=== PATIENT | male | born 1970 | race Caucasian/White ===

== ENCOUNTER 2018-04-22 05:39 | Inpatient (IN) ==
[2018-04-22] MEDS ORDERED: Vancomycin Inj 1 GM/200 ML PIGGYBACK IV.SIG ONE (06:42)
[2018-04-22] MEDS ORDERED: Chlorhexidine Gluconate 2% 1 Pack (2 Cloths) TOPICAL SCH (06:45)
[2018-04-22] MEDS ORDERED: Metoprolol Tartrate 25 MG Tablet PO SCH (06:45)
[2018-04-22] MEDS ORDERED: Vancomycin Inj 1 GM/200 ML PIGGYBACK IV.SIG SCH (07:00)
[2018-04-22] MEDS ORDERED: Sodium Chlor 0.9% Inj 500 ML IV.SIG SCH (07:00)
[2018-04-22] MEDS ORDERED: Sodium Chlor 0.9% Inj 40 ML, Bupivacaine Liposo PF 1.3% Inj 20 ML P-ARTICULR SCH ×2 (07:00)
[2018-04-22] MEDS ORDERED: SODIUM CHLOR 0.9% IV.SIG SCH (07:00)
[2018-04-22] MEDS ORDERED: TRANEXAMIC ACID IV.SIG SCH (07:00)
[2018-04-22] MEDS ORDERED: ceFAZolin 2 GM Premix Inj 2 GM/50 ML PIGGYBACK IV.SIG SCH (07:00)
[2018-04-22] MEDS ORDERED: Bupivacaine/Epinephrine Inj 0.25% 50 ML Vial ONE (07:35)
[2018-04-22] MEDS ORDERED: Morphine Inj 4 MG/ML Vial IV.PUSH PRN ×2 (09:38→10:25)
[2018-04-22] MEDS ORDERED: Post-op Orders (for Pharmacy) OTHER STA (09:38)
[2018-04-22] MEDS ORDERED: oxyCODONE/Acetaminophen 10/325 Tablet PO PRN (09:38)
[2018-04-22] MEDS ORDERED: Bisacodyl 10 MG Supp RECTAL PRN (09:38)
--- NOTE | 2018-04-22 10:07 | P.OP ---
- Preoperative Diagnosis (1) Primary osteoarthritis of left hip - Postoperative Diagnosis (1) Primary osteoarthritis of left hip Date of procedure: 04/22/18 Procedure: Left total hip replacement arthroplasty, direct anterior exposure Anesthesia: GETA Surgeon: Tony Villalba MD [employer] Worker: Emily Puga Estimated blood loss (mL): 800 Operation and Findings: EBL: 800 cc INDICATION: This patient presents with significant hip pain related to severe osteoarthritis of the left hip with acetabular dysplasia and lateral subluxation. Despite extensive conservative care this patient continues to be painful and now presents for surgical treatment. NOTE: Emily Puga PA-C was present for the entire surgical procedure as my international first officer. In my medical opinion her skill and care was necessary for the proper management of this patient. COMPONENTS: COMPANY: [employer] CUP: [place], 62, 100 series, gription surface LINER: Altrx 36, neutral STEM: [place]ail size 16, high offset, hydroxyapatite-coated HEAD: 36, +8.5, ceramic, 12/14 taper PROCEDURE: This patient was brought to the operating room and anesthetized in the supine position and positioned on the fracture table with both legs held extended. The left hip and leg was scrubbed with alcohol followed by Hibiclens followed by ChloraPrep and draped sterilely. Antibiotics were given within routine time window and a timeout was done. A 4 inch incision was made starting 2 cm distal and 2 cm lateral to the anterior superior iliac spine. The fascia mannie was opened longitudinally. The interval between the fascia mannie and the rectus was opened down to the capsule of the hip joint. Retractors were positioned allowing good visualization of the capsule. This was opened longitudinally and flaps were created. Stay sutures were utilized. Exposure was excellent. The neck was cut at the proper location using fluoroscopy as a guide. The head was removed. Deep retractors were positioned allowing good visualization of the acetabulum. Acetabulum was deepened down to the floor starting with a proper size reamer and reaming up to 61 mm. A trial was utilized. Fluoroscopy was used to check position and confirmed satisfactory alignment. The rim was reamed with a 62 mm reamer and the final cup was positioned in approximately 20 of anteversion and 40-45 of abduction. Position was satisfactory. A single hole eliminator was positioned followed by the final liner. The lifting hook was utilized. The leg was dropped to the floor, maximally externally rotated and brought across the midline. Retractors were positioned. A box osteotome was utilized followed by progressive broaching to the proper stem size. Trial reduction showed excellent alignment and fit. With 60 of external rotation the leg was dropped to the floor without evidence of anterior subluxation. The wound was irrigated. The final stem was inserted and was found to be very stable. The final reduction using the final head. Stability was as previously noted. Intraoperative x-rays were taken. The wound was irrigated copiously. Hemostasis was controlled. Local anesthesia was utilized. The capsule was repaired with #2 Tycron sutures. The fascia mannie was repaired with running 0 PDS on a loop. Subcutaneous tissue was approximated with 2-0 Vicryl and skin with running intradermal 3-0 Vicryl followed by Steri-Strips. A sterile dressing was applied. The patient was awakened and taken to the recovery room in satisfactory condition. FINDINGS: There was severe osteoarthritis of the left hip with periacetabular osteophytes. The final solution was excellent. There was no complication that was appreciated
--- NOTE | 2018-04-22 10:09 | P.DCO ---
- Physical Therapy Physical Therapy: Gait training Hip: Total hip, Protocol: Left Left Lower Extremity Weight Bearing: Weight bearing as tolerated - Nursing RN: 3 days/week x 2 weeks Dressing changes: Do not change dressing - Certification Need for Home Health services: I have seen patient Neil Steele on 04/22/18. My clinical findings support the need for the requested home health care services because: Need for Home Health Services: Limited ability to care for self, High risk of falls Homebound Certification: I certify that my clinical findings support that this patient is homebound because: Homebound Certification: Post-op weakness, Unsteady gait/balance
[2018-04-22] MEDS ORDERED: fentaNYL Citrate Inj 100 MCG/2 ML Ampul ONE (10:19)
[2018-04-22] MEDS ORDERED: *Ondansetron Inj 4 MG/2 ML Vial PERIprocedural Use ONLY ONE (10:55)
[2018-04-22] MEDS ORDERED: *Promethazine Inj 25 MG/ML Vial PERIprocedural use ONLY ONE (11:03)
--- NOTE | 2018-04-22 11:22 | P.DS ---
Date of admission: 04/22/18 05:39 Primary care physician: Roshni Hutchinson MD Attending physician on discharge: Tony Villalba Anticipated date of discharge: 04/24/18 Brief History from admission: Mr. Steele has had ongoing left hip pain for 5-1/2 years. He pain began to increase middle of 2016. He saw his primary care physician in July where x- rays were taken. He was told he had severe arthritis. He began to decrease his activity substantially and discontinued all sports. He was given diclofenac which provided mild relief for approximately 3 months. Physical therapy was ordered but provided little relief. He was offered an intra- articular injection but declined. Eventually left total hip arthroplasty, anterior approach was recommended and the patient agreed. He now presents for the above. DS: Diagnosis - Discharge Diagnosis (1) Primary osteoarthritis of left hip Status: Acute DS: Medications - Discharge Medications Prescriptions: aspirin 81 mg PO BID #60 tab oxycodone-acetaminophen 1 tab PO Q4H PRN #42 tab PRN Reason: Pain DS: Summary Hospital Course: Surgical treatment was performed on the day of admission without complication. He recovered well in PACU and was transferred to the orthopaedic floor. Pain was controlled with IV and oral medications. He was compliant with physical therapy and all total hip precautions. After 2 days he was discharged home with home health care. He was educated to progressively weightbear on his operative limb, to pursue a high fiber diet for 3-5 days postop and to ice the operative site 2 times daily for 7 days. He was given prescriptions for aspirin and oxycodone at discharge. - Time Spent with Patient Total time spent providing and/or coordinating discharge services: Less than 30 minutes - Quality: VTE Deep Vein Thrombosis/Pulmonary Embolism Present on Admission: No Exam Vital signs: Vital Signs 04/22/18 06:59 04/22/18 10:08 04/22/18 10:15 Temperature 98.1 F 98.5 F Pulse Rate 76 87 87 Respiratory Rate 20 16 14 Blood Pressure 138/81 117/67 121/65 Pulse Oximetry 100 04/22/18 10:30 04/22/18 10:45 04/22/18 11:00 Temperature Pulse Rate 84 86 83 Respiratory Rate 16 16 14 Blood Pressure 114/62 110/59 L 111/58 L Pulse Oximetry 100 97 95 Intake & Output 04/21/18 04/22/18 04/22/18 18:59 06:59 18:59 Intake Total 2160.17 / 2160.17 Output Total 800 / 800 Balance 1360.17 / 1360.17 Weight 101.7 kg Intake: IV 160.17 / 160.17 Cyklokapron Inj 1,017 MG In NS 110.17 / 110.17 Inj 100 ML @ 200 mls/hr IV.SIG ONCE ANNA Rx#:[id number] Ancef 2 GM Premix Inj 2 gm In 50 / 50 50 ml @ 100 mls/hr IV.SIG [employer] ANNA Rx#:[id number] Anesthesia Amount 1999 Output: Estimated Blood Loss 800 / 800 Other: Weight On Admission 101.7 kg Results Procedures completed during hospitalization: left total hip arthroplasty, direct anterior approach Labs on day of discharge: Labs from last 24 hours 04/22/18 04/22/18 04/22/18 08:31 06:38 06:35 Blood Type A Positive Blood Type Confirm A Positive Antibody Screen Negative MTS Gel Crossmatch See Detail See Detail Discharge Plan - Discharge Disposition Patient Disposition: /Home Health Service - Discharge Condition Condition: Good - Discharge Order Discharge Orders: Discharge Order (Routine); Ordered 04/24/18 Ordered By: Emily Puga - Discharge Details Anticipated Discharge Date: 04/24/18 - Physicians Team Primary Care Provider: Roshni Hutchinson Attending Provider: Tony Villalba Other Providers: Manny Harp MD ; [facility] - Rxs /Orders / Referrals /Forms Prescriptions: New aspirin 81 mg Tablet,Chewable 81 mg PO BID Qty: 60 RF: 0 oxycodone-acetaminophen 10-325 mg Tablet 1 tab PO Q4H PRN (Reason: Pain) Qty: 42 RF: 0 Ambulatory Orders / Order Sets / DME: Adjustable Commode 3-in-1 (1 each) (Routine) Location: Determined by Patient Ordered By: Emily Puga Walker With Front Wheels (1 each) (Routine) Location: Determined by Patient Ordered By: Emily Puga Referrals: Roshni Hutchinson MD [Primary Care Provider] - See Instructions - Discharge Instructions Patient Printed Instructions: Oxycodone/Acetaminophen (By mouth), Aspirin (By mouth), How to Use an Incentive Spirometer (DC), Fall Prevention (DC), SONIDO Hose (DC), Total Hip Replacement (DC) Additional Instructions: Full weight bearing; NO dressing changes per Surgeon Follow up appointment is scheduled for 05/06 @ 1:30 pm Mohamud Mcdowell - Post Discharge Care Plan Care Plan Goals: Discharge Care Plan Goals for Total Hip Replacement You had a left anterior hip replacement surgery. This means your natural hip was replaced with an artificial joint (prosthesis). You may be recovering at home or in a rehabilitation facility. Either way, you must take care of your new hip. Here are some goals to help you heal well. Directions to Meet your Goals: 1. Activity & Exercises: * Take pain medicine as directed by your doctor. * Dont drive until your doctor says its OK. And never drive while taking opioid pain medicine. * Wear the support stockings you were given in the hospital as directed by your surgeon. * Dont sit for more than 30 to 45 minutes at one time. * Dont lean forward while sitting. * Dont cross your legs. * Keep your feet flat on the floor. Dont turn your foot or leg inward. This stresses your hip joint. * Use an elevated toilet seat for 6 weeks after surgery. * Nap if you are tired, but dont stay in bed all day. * Sit on a firm cushion when you ride in a car and avoid sitting too low. Try not to bend your hip too much when getting in and out of the car. 2. Prevent Falls/Injury: * Follow your doctors orders regarding how much weight to put on the affected leg. * Dont bend at the hip when you bend over. Don't bend at the waist to put on socks and shoes. And avoid picking up items from the floor. * Use a cane, crutches, a walker, or handrails until your balance, flexibility, and strength improve. And remember to ask for help from others when you need it. * Free up your hands so that you can use them to keep balance. Use a jie pack , apron, or pockets to carry things. * Arrange your household to keep the items you need handy. Keep everything else out of the way. * Remove items that may cause you to fall, such as throw rugs and electrical cords. * Use nonslip bath mats, grab bars, an elevated toilet seat, and a shower chair in your bathroom * Sit on a shower stool or chair when you shower to keep from falling. 3. Precautions: * Prevent infection. Any infection will need to be treated immediately. Call your doctor right away if you think you might have an infection. * Tell your dentist that you have an artificial joint and take antibiotics as prescribed before any dental work. * Tell all your healthcare providers about your artificial joint before any medical procedure. * Maintain a healthy weight. Get help to lose any extra pounds. Added body weight puts stress on the joints. 4. Incision Care: * Prevent infection by washing your hands often. If an infection occurs, it will need to be treated right away. * Call your doctor right away if you think you may have an infection. Symptoms include a fever or an incision that leaks white, green, or yellow fluid. * Don't soak your incision in water until your doctor says its OK. This means no hot tubs, bathtubs, or swimming pools. * Follow your doctor's instructions for changing the dressing. * Dont rub the incision, or apply creams or lotions to it. * If you notice any redness or drainage around the bandage site, contact your surgeon's office immediately. 5. Follow-Up: Do Not miss your follow-up appointment. Keep up with all your appointments and yearly check ups When to call your doctor: Call your doctor right away if you have: Hip pain gets worse Pain or swelling in your calf or leg not related to your incision Tenderness or redness in your calf Fever of 100.4F (38C) or higher, or as directed by your healthcare provider Shaking chills Swelling or redness at the incision site gets worse Fluid draining from the incision Call 911: Call 911 right away if you have: Chest pain Shortness of breath Any pain or tenderness in your calf
--- NOTE | 2018-04-22 11:26 | P.DCO ---
- Physical Therapy Physical Therapy: Gait training, Safety evaluation Hip: Total hip, Protocol: Left, Progress to weight bearing Left Lower Extremity Weight Bearing: Weight bearing as tolerated Additional instructions: PT 4days/wk for 2 weeks. WBAT LeftLE. Anterior VALENTIN precautions. Walker for gait assist - Nursing RN days per week: 3 x week(s): 1 Nursing: Dressing changes Dressing changes: Do not change dressing Additional instructions: Rn 3x/wk for 1 week. Hold dressing changes unless saturated. Vitals assessment. - Certification Need for Home Health services: I have seen patient Neil Steele on 04/22/18. My clinical findings support the need for the requested home health care services because: Need for Home Health Services: Limited mobility due to disease progression, Deconditioned with increased weakness, Limited ability to care for self, High risk of falls Homebound Certification: I certify that my clinical findings support that this patient is homebound because: Homebound Certification: Post-op weakness, Unsteady gait/balance
--- NOTE | 2018-04-22 14:49 | XR ---
EXAM DATE: 04/22/2018 2:41 PM EDT AGE/SEX: 47 years / Male INDICATIONS: Left total hip replacement. CLINICAL DATA: This is the patient's initial encounter. Patient reports that signs and symptoms have been present for 1 day and indicates a pain score of Nonresponsive. MEDICAL/SURGICAL HISTORY: Non-responsive. Non-responsive. COMPARISON: No prior exams available for comparison. CONCLUSION: Fluoroscopic images during left hip arthroplasty Electronically signed by: Coleman Newton MD 04/22/2018 2:47 PM EDT
[2018-04-22] MEDS ORDERED: Ketorolac Inj 30 MG/ML (IVP) Vial IV.PUSH ONE (15:09)
[2018-04-22] MEDS ORDERED: Glycopyrrolate Inj 1 MG/5 ML Syringe IV.PUSH ONE (15:09)
[2018-04-22] MEDS ORDERED: Neostigmine Inj 5 MG/5 ML Syringe IV.PUSH ONE (15:09)
[2018-04-22] MEDS ORDERED: Temazepam 15 MG Capsule PO PRN (21:00)
[2018-04-22] MEDS: Senna/Docusate Sodium 8.6/50 MG Tablet PO SCH (21:40)
[2018-04-22] MEDS: Multivitamin/Minerals Therapeutic Tablet PO SCH (21:40)
[2018-04-23] MEDS: oxyCODONE/Acetaminophen 10/325 Tablet PO PRN ×4 (00:25→21:28)
[2018-04-23 06:52] LABS: Hematocrit 33.2 % (39.0-51.0); Hemoglobin 11.3 gm/dL (13.0-17.0)
[2018-04-23] MEDS: Senna/Docusate Sodium 8.6/50 MG Tablet PO SCH ×2 (09:04→21:27)
[2018-04-23] MEDS: Multivitamin/Minerals Therapeutic Tablet PO SCH ×2 (09:05→21:27)
--- NOTE | 2018-04-23 10:31 | P.PNOP ---
Subjective Interval history: Patient comfortable. Pain controlled. OOB sitting in recliner. Family member present. Physical Exam Vital signs: Vital Signs 04/22/18 10:30 04/22/18 10:45 04/22/18 11:00 Temperature Pulse Rate 84 86 83 Respiratory Rate 16 16 14 Blood Pressure 114/62 110/59 L 111/58 L Pulse Oximetry 100 97 95 04/22/18 11:15 04/22/18 11:30 04/22/18 12:00 Temperature Pulse Rate 83 87 85 Respiratory Rate 16 16 16 Blood Pressure 108/56 L 108/58 L 104/61 Pulse Oximetry 94 L 94 L 96 04/22/18 12:30 04/22/18 13:00 04/22/18 13:30 Temperature Pulse Rate 85 80 88 Respiratory Rate 16 14 16 Blood Pressure 105/61 109/63 108/65 Pulse Oximetry 97 96 99 04/22/18 14:00 04/22/18 14:30 04/22/18 15:00 Temperature Pulse Rate 104 H 80 79 Respiratory Rate 14 16 16 Blood Pressure 114/65 106/62 111/60 Pulse Oximetry 98 98 97 04/22/18 16:30 04/22/18 20:00 04/23/18 00:00 Temperature 97.4 F L 98.2 F 99.1 F Pulse Rate 91 H 98 H 87 Respiratory Rate 19 18 18 Blood Pressure 117/69 125/69 115/61 Pulse Oximetry 98 97 97 04/23/18 08:00 Temperature 97.8 F Pulse Rate 95 H Respiratory Rate 19 Blood Pressure 118/68 Pulse Oximetry 95 Intake & Output 04/22/18 04/23/18 04/23/18 18:59 06:59 18:59 Intake Total 2160.17 / 2160.17 100 / 100 100 / 100 Output Total 800 / 800 Balance 1360.17 / 1360.17 100 / 100 100 / 100 Weight 101.7 kg Intake: IV 160.17 / 160.17 100 / 100 100 / 100 Cyklokapron Inj 1,017 MG In NS 110.17 / 110.17 Inj 100 ML @ 200 mls/hr IV.SIG ONCE ANNA Rx#:[id number] Ancef 2 GM Premix Inj 2 gm In 50 / 50 50 ml @ 100 mls/hr IV.SIG KAITARA TARAKA ANNA Rx#:[id number] Ancef Inj 1,000 MG In NS Inj 100 / 100 100 / 100 100 ML @ 200 mls/hr IV.SIG Q6H [facility] Rx#:[id number] Anesthesia Amount 1999 Output: Estimated Blood Loss 800 / 800 Other: Date of Last Bowel Movement 04/21/18 04/22/18 Weight On Admission 101.7 kg Narrative: Left hip dressing C/D/I calves soft negative Homans distally motor, neuro and sensory intact Results - Labs CBC & Chem 7: 04/23/18 06:20 Laboratory Results - last 24 hr 04/23/18 06:20 Hgb 11.3 L Hct 33.2 L - Imaging Impressions Hip/Pelvis X-Ray 04/22/18 00:00 CONCLUSION: Fluoroscopic images during left hip arthroplasty Assessment and Plan - Ortho Post Op Day # 2 - Problem List (1) Primary osteoarthritis of left hip Code(s): M16.12 - Unilateral primary osteoarthritis, left hip Status: Acute - Assessment and Plan POD #2 Left VALENTIN Anterior Approach Scheduled to have radiation tomorrow Pain management DVT prophylaxis Physical therapy - WBAT D/C planning - anticipating home with [facility] Monitor
[2018-04-24 05:21] LABS: Hematocrit 32.5 % (39.0-51.0); Hemoglobin 10.9 gm/dL (13.0-17.0)
--- NOTE | 2018-04-24 08:38 | P.PNOP ---
Subjective Interval history: No new complaints. Pain moderately controlled. Urinating well. No BM yet but no abd discomfort. Radiation scheduled for this afternoon. Physical Exam Vital signs: Vital Signs 04/23/18 12:04 04/23/18 16:04 04/23/18 20:00 Temperature 98.5 F 98.1 F 100.5 F H Pulse Rate 88 86 97 H Respiratory Rate 18 18 18 Blood Pressure 115/63 108/59 L 123/64 Pulse Oximetry 98 95 95 04/24/18 00:00 04/24/18 04:00 Temperature 99.3 F 97.8 F Pulse Rate 98 H 97 H Respiratory Rate 20 18 Blood Pressure 104/55 L 119/67 Pulse Oximetry 95 93 L Intake & Output 04/23/18 04/24/18 04/24/18 18:59 06:59 18:59 Intake Total 100 / 100 300 / 300 Output Total 300 / 300 Balance 100 / 100 0 / 0 Intake: IV 100 / 100 Ancef Inj 1,000 MG In NS Inj 100 / 100 100 ML @ 200 mls/hr IV.SIG Q6H ANNA Rx#:[id number] Oral 300 / 300 Output: Urine 300 / 300 Other: # Voids 5 2 Date of Last Bowel Movement 04/22/18 Narrative: Sitting up in bed NAD VSS Left LE Hip dressing c/d/i, no new drainage, mild swelling No erythema, Neg homans, calves soft distally motor, neuro and sensory intact, +nvi Results - Labs CBC & Chem 7: 04/24/18 04:09 Laboratory Results - last 24 hr 04/24/18 04:09 Hgb 10.9 L Hct 32.5 L Assessment and Plan - Ortho Post Op Day # 2 (s/p L VALENTIN, anterior) - Problem List (1) Primary osteoarthritis of left hip Code(s): M16.12 - Unilateral primary osteoarthritis, left hip Status: Acute - Assessment and Plan Pain controlled. Ortho stable. Waiting on radiation this afternoon. Ok for d/c home w [facility] after treatment. PO pain meds as needed. ASA 81mg for DVT prophylaxis Physical therapy - WBAT LLE. Anterior valentin precautions. F/U in 2 weeks as scheduled. Has all DME at home.
[2018-04-24] MEDS: Senna/Docusate Sodium 8.6/50 MG Tablet PO SCH (08:47)
[2018-04-24] MEDS: Multivitamin/Minerals Therapeutic Tablet PO SCH (08:47)
--- NOTE | 2018-06-12 15:17 | RADONCENDT ---
END OF TREATMENT SUMMARY Date: 04/24/2018 Patient Name: Neil Steele Date of : 1970 Age: 47 Sex: Male END OF TREATMENT SUMMARY PRIMARY REFERRING PHYSICIAN: Tony Villalba CC: Tony Villalba DIAGNOSIS: Primary M96.89 - Other intraoperative and postprocedural complications and disorders of the musculoskeletal system, Diagnosed 04/22/2018 (Active) , Primary M16.12 - Unilateral primary osteoarthritis, left hip, Diagnosed 04/09/2018 (Active) , Diagnosis Confirmed: Suspected Diagnosis Date: 04/22/2018 Diagnosis Laterality: Method of Diagnosis: Unknown PRESCRIPTION AND TREATMENT: Lt Hip (Plan ID - Lt Hip c1) - Rx Dose 700cGy (Status - Treatment Approved) - PLAN FRACTIONS AND DATES: Course: Lt Hip Plan IDFractionsFirst TreatmentLast TreatmentExpected End of TreatmentLt Hip c11 / 1 TREATED PLANS: Course: Lt Hip Plan IDEnergyFractionsDose per Fraction (cGy)Dose Correction (cGy)Total Dose Delivered (cGy)Elapsed DaysLt Hip c115X1 / [id number] TOLERANCE: no complications FOLLOW UP PLAN: no Manny Harp MD 06/12/2018 3:15:59 PM This report was verified electronicallyThis report was verified electronically
== END 2018-04-24 15:10 | disposition home health service (06) ==
LOC: HSDI 05:39 → N06 15:50
PROVIDERS: ADMIT Orthopaedic Surgery Orthopaedic Surgery of the Spine; ATTEND Orthopaedic Surgery Orthopaedic Surgery of the Spine
DX: M16.12 Unilateral primary osteoarthritis, left hip; M96.89 Other intraoperative and postprocedural complications and disorders of the musculoskeletal system; Z79.01 Long term (current) use of anticoagulants